=== PATIENT | female | born 1970 | race African-American/Black ===

== ENCOUNTER 2019-05-05 15:32 | Inpatient (IN) | payer OTHER ==
[2019-05-05] MEDS: SODIUM CHLORIDE 1,000 ML IV SCH (15:50)
[2019-05-05] MEDS ORDERED: ALTEPLASE 100MG 100 MG IVPB ONE (15:50)
[2019-05-05] MEDS ORDERED: ALTEPLASE 100 MG VIAL IVPB ONE ×2 (15:59→17:11)
[2019-05-05] MEDS ORDERED: ALTEPLASE BOLUS IVPUSH ONE ×2 (15:59→17:11)
[2019-05-05 16:03] LABS: BASO % 0.3 % (0-2.0); EOS % 0.1 % (0-4.5); HEMATOCRIT 37.7 % (32.4-45.2); HEMOGLOBIN 12.5 GM/dL (10.7-15.3); LYMPH % 3.8 % (8-40); MCH 30.9 pg (25.7-33.7); MCHC 33.2 g/dl (32.0-36.0); MEAN CELL VOLUME 93.1 fl (80-96); MEAN PLT VOLUME 7.6 fl (7.5-11.1); MONO % 1.7 % (3.8-10.2); NEUT % 94.1 % (42.8-82.8); PLATELET COUNT 354 K/MM3 (134-434); RBC 4.05 M/mm3 (3.60-5.2); RDW 13.2 % (11.6-15.6); WHITE BLOOD COUNT 10.9 K/mm3 (4.0-10.0)
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
[2019-05-05 16:15] LABS: INR 0.98 (0.83-1.09); PROTHROMBIN TIME (PATIENT) 11.6 SEC (9.7-13.0)
[2019-05-05 16:39] LABS: ALBUMIN 3.5 g/dl (3.4-5.0); ALK PHOS 54 U/L (45-117); ANION GAP 9 MMOL/L (8-16); BILIRUBIN,TOTAL 0.3 mg/dL (0.2-1); BLOOD UREA NITROGEN 12.9 mg/dL (7-18); CALCIUM 9.1 mg/dL (8.5-10.1); CHLORIDE 103 mmol/L (98-107); CHOLESTEROL 199 mg/dL (50-200); CO2 27 mmol/L (21-32); CREATININE 0.8 mg/dL (0.55-1.3); GLUCOSE,RANDOM 109 mg/dL (74-106); HDL CHOLESTEROL 79 mg/dL (40-60); POTASSIUM 3.5 mmol/L (3.5-5.1); SGOT/AST 18 U/L (15-37); SGPT/ALT 17 U/L (13-61); SODIUM 139 mmol/L (136-145); TOT PROT 6.5 g/dl (6.4-8.2); TRIGLYCERIDES 38 mg/dL (0-150)
[2019-05-05 17:00] LABS: PLATELET ESTIMATE ADEQUATE
[2019-05-05 17:34] LABS: PH,URINE 6.5 (5.0-8.0); URINE APPEARANCE CLEAR; URINE BILIRUBIN NEGATIVE (NEGATIVE); URINE COLOR YELLOW; URINE GLUCOSE (UA) NEGATIVE (NEGATIVE); URINE KETONE NEGATIVE (NEGATIVE); URINE LEUK ESTERASE NEGATIVE (NEGATIVE); URINE NITRITE NEGATIVE (NEGATIVE); URINE PROTEIN NEGATIVE (NEGATIVE); URINE UROBILINOGEN 0.2 mg/dL (0.2-1.0)
[2019-05-05] MEDS ORDERED: ACETAMINOPHEN 1000 MG/100 ML VIAL (NON FORMULARY) IVPB ONE ×2 (17:38→19:47)
[2019-05-05] MEDS ORDERED: ACETAMINOPHEN INJECTION 100 ML IVPB ONE (17:44)
--- NOTE | 2019-05-05 18:19 | CONSULT ---
Consultation: REQUESTING PROVIDER: CONSULT REQUEST: We have been asked to medically evaluate this patient for ICU monitoring. HISTORY OF PRESENT ILLNESS: 48 y/o female with PMH of asthma, MS, HTN presented to the hospital for a R bunyonectomy (patient's last known well was right before surgery; post- operatively patient was recovering in PACU and her parents noticed she had a hard time communicating with them and was having right sided weakness- code greco was called (at that time patient was found to have an NIH score of 11) and patient was taken to the ER where she was found to have an NIH of 7- she underwent head CT and CTA which showed no evidence of large vessel occlusion or stenosis - it showed periventricular white matter low attenuation areas which could be on the basis of infarct, demyelinating disease, gliosis or vasculitis. she was given TPA which started at 5:09 pm. REVIEW OF SYSTEMS: CONSTITUTIONAL: Absent: fever, chills, diaphoresis, generalized weakness, malaise, loss of appetite, weight change HEENT: Present: eye pain Absent: rhinorrhea, nasal congestion, throat pain, throat swelling, difficulty swallowing, mouth swelling, ear pain, visual changes CARDIOVASCULAR: Absent: chest pain, syncope, palpitations, irregular heart rate, lightheadedness , peripheral edema RESPIRATORY: Absent: cough, shortness of breath, dyspnea with exertion, orthopnea, wheezing, stridor, hemoptysis GASTROINTESTINAL: Absent: abdominal pain, abdominal distension, nausea, vomiting, diarrhea, constipation, melena, hematochezia GENITOURINARY: Absent: dysuria, frequency, urgency, hesitancy, hematuria, flank pain, genital pain MUSCULOSKELETAL: Present: right foot pain Absent: myalgia, arthralgia, joint swelling, back pain , neck pain SKIN: Absent: rash, itching, pallor HEMATOLOGIC/IMMUNOLOGIC: Absent: easy bleeding, easy bruising, lymphadenopathy, frequent infections ENDOCRINE: Absent: unexplained weight gain, unexplained weight loss, heat intolerance, cold intolerance NEUROLOGIC: Present: headache, focal weakness Absent: paresthesias, dizziness, unsteady gait , seizure, mental status changes, bladder or bowel incontinence PSYCHIATRIC: Absent: anxiety, depression, suicidal or homicidal ideation, hallucinations. PHYSICAL EXAMINATION Vital Signs - 24 hr 05/05/19 05/05/19 05/05/19 15:32 16:08 16:34 Temperature 98.1 F Pulse Rate 80 Pulse Rate [ 72 80 Apical] Respiratory 16 16 18 Rate Blood Pressure 119/94 Blood Pressure 131/86 127/71 [Right Arm] O2 Sat by Pulse 100 100 100 Oximetry (%) 05/05/19 05/05/19 05/05/19 16:45 17:09 17:24 Temperature Pulse Rate Pulse Rate [ 70 70 75 Apical] Respiratory 18 18 16 Rate Blood Pressure Blood Pressure 131/67 128/70 128/73 [Right Arm] O2 Sat by Pulse 100 100 100 Oximetry (%) GENERAL: Awake, alert,tearful EYES: PEERLA; EOMI; no scleral icterus NECK: no JVD; no lymphadenopathy LUNGS: diminished breath sounds B/L HEART: Regular rate and rhythm, normal S1 and S2 without murmur, rub or gallop. ABDOMEN: soft; nontender; non-distended +BS in all 4 quadrants MUSCULOSKELETAL: SEE NIHH STROKE SCALE NOTE. EXTREMITIES: warm; well-perfused no clubbing/cyanosis or edema NEUROLOGICAL: SEE NIHH STROKE SCALE NOTE PSYCHIATRIC: Cooperative. Good eye contact. Appropriate mood and affect. SKIN: Warm, dry, normal turgor, no rashes or lesions noted. Laboratory Results - last 24 hr 05/05/19 05/05/19 05/05/19 15:55 15:55 15:55 WBC 10.9 H RBC 4.05 Hgb 12.5 Hct 37.7 MCV 93.1 MCH 30.9 MCHC 33.2 RDW 13.2 Plt Count 354 MPV 7.6 Absolute Neuts (auto) 10.3 H Neutrophils % 94.1 H Neutrophils % (Manual) 93.0 H* Band Neutrophils % 0.0 Lymphocytes % 3.8 L Lymphocytes % (Manual) 7.0 L Monocytes % 1.7 L Monocytes % (Manual) 0 L Eosinophils % 0.1 Eosinophils % (Manual) 0.0 Basophils % 0.3 Basophils % (Manual) 0.0 Nucleated RBC % 0 Platelet Estimate Adequate PT with INR 11.60 INR 0.98 Sodium 139 Potassium 3.5 Chloride 103 Carbon Dioxide 27 Anion Gap 9 BUN 12.9 Creatinine 0.8 Est GFR (CKD-EPI)AfAm 102.47 Est GFR (CKD-EPI)NonAf 88.41 Random Glucose 109 H Calcium 9.1 Total Bilirubin 0.3 AST 18 ALT 17 Alkaline Phosphatase 54 Creatine Kinase 197 H Creatine Kinase Index 0.8 CK-MB (CK-2) 1.6 Troponin I < 0.02 Total Protein 6.5 Albumin 3.5 Triglycerides 38 Cholesterol 199 Total LDL Cholesterol 107 H HDL Cholesterol 79 H Urine Color Urine Appearance Urine pH Ur Specific [place] Urine Protein Urine Glucose (UA) Urine Ketones Urine Blood Urine Nitrite Urine Bilirubin Urine Urobilinogen Ur Leukocyte Esterase Blood Type Antibody Screen 05/05/19 05/05/19 15:55 17:10 WBC RBC Hgb Hct MCV MCH MCHC RDW Plt Count MPV Absolute Neuts (auto) Neutrophils % Neutrophils % (Manual) Band Neutrophils % Lymphocytes % Lymphocytes % (Manual) Monocytes % Monocytes % (Manual) Eosinophils % Eosinophils % (Manual) Basophils % Basophils % (Manual) Nucleated RBC % Platelet Estimate PT with INR INR Sodium Potassium Chloride Carbon Dioxide Anion Gap BUN Creatinine Est GFR (CKD-EPI)AfAm Est GFR (CKD-EPI)NonAf Random Glucose Calcium Total Bilirubin AST ALT Alkaline Phosphatase Creatine Kinase Creatine Kinase Index CK-MB (CK-2) Troponin I Total Protein Albumin Triglycerides Cholesterol Total LDL Cholesterol HDL Cholesterol Urine Color Yellow Urine Appearance Clear Urine pH 6.5 Ur Specific [place] 1.018 Urine Protein Negative Urine Glucose (UA) Negative Urine Ketones Negative Urine Blood Negative Urine Nitrite Negative Urine Bilirubin Negative Urine Urobilinogen 0.2 Ur Leukocyte Esterase Negative Blood Type A POSITIVE Antibody Screen Negative Active Medications Generic Name Dose Route Start Last Admin Trade Name Freq PRN Reason Stop Dose Admin Sodium Chloride 1,000 mls @ 42 mls/hr 05/05/19 15:45 05/05/19 15:50 Normal Saline - IV 42 mls/hr ASDIR LISSY Administration Head CTA: As noted on recent performed noncontrast CT extensive periventricular white matter low-attenuation is noted which may be on the basis of etiologies such as infarction, demyelinating disease disease, postinflammatory/postinfectious gliosis, vasculitis. Bilateral parietal lobe atrophy is also seen. Impression: No CT evidence of large vessel stenosis or occlusion. No discrete intraluminal defect is seen. ASSESSMENT/PLAN: 48 y/o female with PMH of MS, asthma, HTN presented to the hospital for a R bunyonectomy surgery was recovering in PACU when she developed acute right sided weakness and trouble speaking found to have an acute CVA #Neuro patient underwent head CT/CTA with results noted above -TPA was done in the ER started at 5:09 -patient NIH scale currently 9 -allow for permissive HTN: <180/105 in the first 24 hours -vital signs and neuro checks q15 mins for the first hour; then every 30 mins for the next 6 hours; then hourly at the 8th posttransfusion hour -neuro on board -MRI to be done -echo/dopplers -lipid panel -will monitor for signs of bleeding -NPO until speech and swallow eval #Cardiovascular patient has a history of HTN -need to allow for permissive HTN in first 24 hours -maintain BP <180/105\ -lipid panel pending -atorvastatin 80mg -echo pending # Pulmonary patient has history of asthma -not in acute distress at the moment -will monitor O2 saturations F/E/N NS @42mls/hr monitor electrolytes NPO until speech and swallow eval DVT PPX; SCDS Dispo: We will continue to follow the patient. Thank you for this consultative opportunity. Visit type - Emergency Visit Emergency Visit: Yes ED Registration Date: 05/05/19 Care time: The patient presented to the Emergency Department on the above date and was hospitalized for further evaluation of their emergent condition. - New Patient This patient is new to me today: Yes Date on this admission: 05/05/19 - Critical Care Critical Care patient: Yes Total Critical Care Time (in minutes): 35 Critical Care Statement: The care of this patient involved high complexity decision making to prevent further life threatening deterioration of the patient 's condition and/or to evaluate & treat vital organ system(s) failure or risk of failure.
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
--- NOTE | 2019-05-05 18:46 | HP ---
CHIEF COMPLAINT: PCP: HISTORY OF PRESENT ILLNESS: The patient is a 48 y/o female with PMH of asthma, MS, HTN presented to the hospital for an elective R bunyonectomy. After coming out of the surgery, the patient's mother noticed that she was slurring her words and was displaying delayed speech. Ildefonso greco was called in the PACU. Rapid response team assessed the patient and found RUE/RLE weakness as well as decreased sensation on the right side of the face. NIHSS on initial presentation: 11 Patient was taken to the ER for further evaluation. In the ED, the patient was found to have a NIHSS 7. CTA showed no large vessel occlusion, therefore transfer for thrombectomy was nto indicated. At 2.5 hrs since last known well, ton remained with an NIHSS of 7. The decision was made between ED staff and neuro (Dr. Khoury) to give the patient TPa. Infusion initiated at approx. 17:09. Recent Travel: none PAST MEDICAL HISTORY: see HPI PAST SURGICAL HISTORY: Right TKA Left total hip replacement Social History: Smoking: denies Alcohol: denies Drugs: denies Family History: Non-contributory Allergies azithromycin [From Zithromax Z-Eduardo] Allergy (Verified 05/05/19 15:36) "feels out of it" fish derived Allergy (Verified 05/05/19 15:36) "anaphylactic reaction" hydrocodone [From Vicodin] Allergy (Verified 05/05/19 15:36) "hives" meperidine [From Demerol] Allergy (Verified 05/05/19 15:36) "itch/hives" oxycodone Allergy (Verified 05/05/19 15:36) "hives,difficulty breathing" tree nut Allergy (Verified 05/05/19 15:36) "swelling-throat" HOME MEDICATIONS: Home Medications Medication Instructions Recorded Albuterol Sulfate Inhaler - 1 - 2 inh PO Q4H PRN 05/05/19 [Ventolin Hfa Inhaler -] Azelastine HCl 137 mcg NS PRN PRN 05/05/19 Fluticasone Propionate [Flovent 100 mcg IH PRN PRN 05/05/19 Diskus] Gabapentin [Neurontin -] 300 mg PO Q8H 05/05/19 Levocetirizine Dihydrochloride 5 mg PO DAILY 05/05/19 [Xyzal] Losartan Potassium 25 mg PO DAILY 05/05/19 Montelukast Sodium [Singulair] 10 mg PO DAILY 05/05/19 Pantoprazole Sodium 40 mg PO BID 05/05/19 REVIEW OF SYSTEMS CONSTITUTIONAL: Absent: fever, chills, diaphoresis, generalized weakness, malaise, loss of appetite, weight change HEENT: Absent: rhinorrhea, nasal congestion, throat pain, throat swelling, difficulty swallowing, mouth swelling, ear pain, eye pain, visual changes CARDIOVASCULAR: Absent: chest pain, syncope, palpitations, irregular heart rate, lightheadedness , peripheral edema RESPIRATORY: Absent: cough, shortness of breath, dyspnea with exertion, orthopnea, wheezing, stridor, hemoptysis GASTROINTESTINAL: Absent: abdominal pain, abdominal distension, nausea, vomiting, diarrhea, constipation, melena, hematochezia GENITOURINARY: Absent: dysuria, frequency, urgency, hesitancy, hematuria, flank pain, genital pain MUSCULOSKELETAL: Absent: myalgia, arthralgia, joint swelling, back pain, neck pain SKIN: Absent: rash, itching, pallor HEMATOLOGIC/IMMUNOLOGIC: Absent: easy bleeding, easy bruising, lymphadenopathy, frequent infections ENDOCRINE: Absent: unexplained weight gain, unexplained weight loss, heat intolerance, cold intolerance NEUROLOGIC: Absent: dizziness, unsteady gait, seizure, mental status changes, bladder or bowel incontinence PSYCHIATRIC: Absent: anxiety, depression, suicidal or homicidal ideation, hallucinations. PHYSICAL EXAMINATION Vital Signs - 24 hr 05/05/19 05/05/19 05/05/19 15:32 16:08 16:34 Temperature 98.1 F Pulse Rate 80 Pulse Rate [ 72 80 Apical] Respiratory 16 16 18 Rate Blood Pressure 119/94 Blood Pressure 131/86 127/71 [Right Arm] O2 Sat by Pulse 100 100 100 Oximetry (%) 05/05/19 05/05/19 05/05/19 16:45 17:09 17:24 Temperature Pulse Rate Pulse Rate [ 70 70 75 Apical] Respiratory 18 18 16 Rate Blood Pressure Blood Pressure 131/67 128/70 128/73 [Right Arm] O2 Sat by Pulse 100 100 100 Oximetry (%) 05/05/19 05/05/19 05/05/19 17:54 18:09 18:39 Temperature Pulse Rate Pulse Rate [ 72 65 76 Apical] Respiratory 17 16 16 Rate Blood Pressure Blood Pressure 125/70 128/73 126/74 [Right Arm] O2 Sat by Pulse 100 100 100 Oximetry (%) GENERAL: Awake, alert, and fully oriented, in moderate distress. Answers delayed , but appropriate to questions. HEAD: Normal with no signs of trauma. EYES: Pupils equal, round and reactive to light, extraocular movements intact, sclera anicteric, conjunctiva clear. No lid lag. EARS, NOSE, THROAT: Ears normal, nares patent, oropharynx clear without exudates. Moist mucous membranes. NECK: Normal range of motion, supple without lymphadenopathy, JVD, or masses. LUNGS: Breath sounds equal, clear to auscultation bilaterally. No wheezes, and no crackles. No accessory muscle use. HEART: Regular rate and rhythm, normal S1 and S2 without murmur, rub or gallop. ABDOMEN: Soft, nontender, not distended, normoactive bowel sounds, no guarding, no rebound, no masses. No hepatomegaly or splenomegaly. LOWER EXTREMITIES: 2+ pulses, warm, well-perfused. No calf tenderness. No peripheral edema. RLE wrapped in hiro bandage post-op NEUROLOGICAL: Right sided flattening of the nasolabial fold. right sided partial hemianopsia. strength 3/5 on right, strength 5/5 on left. Decreased sensation over left face and over left arm and left leg. aphasia and dysarthria present. NIHSS 8. SKIN: Warm, dry, normal turgor, no rashes noted, normal capillary refill. Laboratory Results - last 24 hr 05/05/19 05/05/19 05/05/19 15:55 15:55 15:55 WBC 10.9 H RBC 4.05 Hgb 12.5 Hct 37.7 MCV 93.1 MCH 30.9 MCHC 33.2 RDW 13.2 Plt Count 354 MPV 7.6 Absolute Neuts (auto) 10.3 H Neutrophils % 94.1 H Neutrophils % (Manual) 93.0 H* Band Neutrophils % 0.0 Lymphocytes % 3.8 L Lymphocytes % (Manual) 7.0 L Monocytes % 1.7 L Monocytes % (Manual) 0 L Eosinophils % 0.1 Eosinophils % (Manual) 0.0 Basophils % 0.3 Basophils % (Manual) 0.0 Nucleated RBC % 0 Platelet Estimate Adequate PT with INR 11.60 INR 0.98 Sodium 139 Potassium 3.5 Chloride 103 Carbon Dioxide 27 Anion Gap 9 BUN 12.9 Creatinine 0.8 Est GFR (CKD-EPI)AfAm 102.47 Est GFR (CKD-EPI)NonAf 88.41 Random Glucose 109 H Calcium 9.1 Total Bilirubin 0.3 AST 18 ALT 17 Alkaline Phosphatase 54 Creatine Kinase 197 H Creatine Kinase Index 0.8 CK-MB (CK-2) 1.6 Troponin I < 0.02 Total Protein 6.5 Albumin 3.5 Triglycerides 38 Cholesterol 199 Total LDL Cholesterol 107 H HDL Cholesterol 79 H Urine Color Urine Appearance Urine pH Ur Specific [place] Urine Protein Urine Glucose (UA) Urine Ketones Urine Blood Urine Nitrite Urine Bilirubin Urine Urobilinogen Ur Leukocyte Esterase Blood Type Antibody Screen 05/05/19 05/05/19 15:55 17:10 WBC RBC Hgb Hct MCV MCH MCHC RDW Plt Count MPV Absolute Neuts (auto) Neutrophils % Neutrophils % (Manual) Band Neutrophils % Lymphocytes % Lymphocytes % (Manual) Monocytes % Monocytes % (Manual) Eosinophils % Eosinophils % (Manual) Basophils % Basophils % (Manual) Nucleated RBC % Platelet Estimate PT with INR INR Sodium Potassium Chloride Carbon Dioxide Anion Gap BUN Creatinine Est GFR (CKD-EPI)AfAm Est GFR (CKD-EPI)NonAf Random Glucose Calcium Total Bilirubin AST ALT Alkaline Phosphatase Creatine Kinase Creatine Kinase Index CK-MB (CK-2) Troponin I Total Protein Albumin Triglycerides Cholesterol Total LDL Cholesterol HDL Cholesterol Urine Color Yellow Urine Appearance Clear Urine pH 6.5 Ur Specific [place] 1.018 Urine Protein Negative Urine Glucose (UA) Negative Urine Ketones Negative Urine Blood Negative Urine Nitrite Negative Urine Bilirubin Negative Urine Urobilinogen 0.2 Ur Leukocyte Esterase Negative Blood Type A POSITIVE Antibody Screen Negative ASSESSMENT/PLAN: The patient is a 48 y/o female with PMH of asthma, MS, HTN presented to the hospital for an elective R bunyonectomy. After coming out of the surgery, the patient's mother noticed that she was slurring her words and was displaying delayed speech. #Focal neurological deficits 2/2 acute CVA -s/p TPa @ 17:09 -No needle sticks for 24 hrs. -Neuro checks [id number] -seizure precautions -strict bp control; maintain bp <180/105 -Defer additional testing until 24 hrs after TPa -Carotid dopplers -echo -Lipitor 80mg -holding ASA for now as patient got TPa -NPO for now as dysarthric -Speech consult in AM -Fall precautions -seizure precautions -admit ICU for close monitoring. #FEN -no fluids indicated -lytes WNL -NPO for now #Prophy -AC contraindicated in the setting of TPa #Dispo -admit ICU Visit type - Emergency Visit Emergency Visit: Yes ED Registration Date: 05/05/19 Care time: The patient presented to the Emergency Department on the above date and was hospitalized for further evaluation of their emergent condition. - New Patient This patient is new to me today: Yes Date on this admission: 05/05/19 - Critical Care Critical Care patient: Yes Total Critical Care Time (in minutes): 40 Critical Care Statement: The care of this patient involved high complexity decision making to prevent further life threatening deterioration of the patient 's condition and/or to evaluate & treat vital organ system(s) failure or risk of failure.
--- NOTE | 2019-05-05 18:49 | PN.NIHSS ---
NIH Stroke Scale - Last Known Well Date/Time & Onset Date Last Known Well: 05/05/19 - Initial Evaluation Level of consciousness: Alert Ask patient the month and their age: Answers both correctly Ask patient to open & close eyes; make fist and let go: Obeys both correctly Best gaze (horizontal eye movement): Normal Visual field testing: Partial hemianopia Facial paresis (Show teeth/raise eyebrows/close eyes tight): Minor paralysis ( flattened nasolabial fold, asymmetry on smiling) Motor Function: Left Arm: Normal Motor Function: Right Arm: Drift Motor Function: Left Leg: Normal (extends leg 30 degrees for 5 seconds without drift) Motor Function: Right Leg: Drift Limb Ataxia: No ataxia Sensory(Use pinprick test arms,legs,trunk,face/side to side): Mild to moderate decrease in sensation Best language (Describe picture, name items, read sentences): Severe aphasia Dysarthria (read several words): Mild to moderate slurring of words Extinction and Inattention: No abnormality - Total Score NIH Stroke Scale Score: 8
[2019-05-05] MEDS: CHLORHEXIDINE GLUCONATE 4% CLEANSER FOR DECOLONIZATION TP SCH (21:04)
[2019-05-05] MEDS: ATORVASTATIN CA 80 MG TABLET (FP) PO SCH (21:05)
[2019-05-05] MEDS ORDERED: ALBUTEROL SO4 8 GM HFA INHALER IH PRN (22:44)
[2019-05-05] MEDS: MUPIROCIN 2% TOPICAL OINTMENT FOR DECOLONIZATION NS SCH (23:37)
[2019-05-06] MEDS ORDERED: PATIENT'S OWN MEDICATION (NON-FORMULARY) (Fluticasone Propionate [Flovent Diskus] 100 MCG) IH PRN (01:51)
[2019-05-06] MEDS ORDERED: MOMETASONE FUROATE 220 MCG/IH INHALER IH SCH (02:15)
[2019-05-06] MEDS ORDERED: ACETAMINOPHEN 1000 MG/100 ML VIAL (NON FORMULARY) IVPB ONE ×2 (03:17→08:42)
--- NOTE | 2019-05-06 08:41 | PN ---
Progress Note (short form) - Note Progress Note: continues to have weakness on the R side but overall improved from yesterday. denies CP, SOB, fever, chills, N/V/C/D, blurred vision, MILLIG[place], informed night RN that she takes her medications inconsistently and only when she feels like she needs it. took her losaratan day before surgery and noted to be extremely dizzy. she said she took her BP and systolic was in the 80's. said she checked it morning of surgery and found it to be 120 so she decided to proceed with the surgery but notes she did not notify anyone of her BP the day before Current Medications Generic Name Dose Route Start Last Admin Trade Name Freq PRN Reason Stop Dose Admin Albuterol Sulfate 1 - 2 puff 05/05/19 22:44 05/05/19 23:36 Ventolin Hfa Inhaler - IH 1 puff Q4H PRN Administration ASTHMA Atorvastatin Calcium 80 mg 05/05/19 22:00 05/05/19 21:05 Lipitor - PO Not Given HS LISSY Chlorhexidine Gluconate 1 applic 05/05/19 22:00 05/05/19 21:04 Hibiclens For Decolonization - TP 1 applic HS LISSY Administration Sodium Chloride 1,000 mls @ 42 mls/hr 05/05/19 15:45 05/05/19 15:50 Normal Saline - IV 42 mls/hr ASDIR LISSY Administration Mometasone Furoate 1 puff 05/06/19 02:15 05/06/19 02:30 Asmanex 220mcg - IH 1 puff HS LISSY Administration Mupirocin 1 applic 05/05/19 22:00 05/05/19 23:37 Bactroban Ointment (For Decolonization) - NS 05/10/19 21:59 1 applic BID LISSY Administration Last Vital Signs Temp Pulse Resp BP Pulse Ox 98.3 F 64 15 140/68 100 05/06/19 06:00 05/06/19 08:00 05/06/19 08:00 05/06/19 08:00 05/05/19 19:14 General more alert. slow to respond but not slurred CV S1 s2 RRR no murmur/rub/gallop Lungs CTA B/L no wheezing/rales/rhonci Extremities R foot in surgical shoe with JOSE E bandage Neuro decreased sensation on the R side of face but intact throughout the rest of the body. no facial droop. R pronator drift. sensation 3/5 RUE 2/5 RLE 5/5 LUE and LLE ASSESSMENT AND PLAN: 48yo F with PMH HTN, asthma, MS, seizures was sent to the ER after nikole shultz was called in the PACU for dysarthria and change in mental status was found to have NIHSS 11 initially and then 7 in the ER. 1. CVA- possible arrhythmia which potentiated embolus vs hypoperfusion. appears she had hypotensive episode night before presentation. s/p TPA given at 1800 yesterday. will hold all lab draws until that time. bedside swallow to assess if diet can be advanced. frequent neurochecks SBP <180. will need echo/mri/ carotid dopplers. will need to be evaluated by speech and swallow and PT. lipids to be checked when able to do labs. on high intensity statin. hold asa given TPA 2. Leukocytosis- likely stress induced from surgery. no obvious signs of infection. will hold abx at this time. repeat tonight 3. HTN- holding medications. goal <180 4. Seizure- not on seizure medications? will need to med rec and verify. seizure precautions 5. MSD- gets daily injections. will need to hold at this time given TPA 5. DVT ppx- no pharmacologic anticoagulation as pt received TPA 6. MICU monitoring. spoke with sister present at bedside, all questions answred. verbalized understanding and agreement The care of this patient involved high complexity decision making to prevent further life threatening deterioration of the patient's condition and/or to evaluate & treat vital organ system(s) failure or risk of failure. 42 mins
--- NOTE | 2019-05-06 10:08 | PN ---
Progress Note (short form) - Note Progress Note: Pulm/CCM Seen and examined in ICU 24HR: -s/p tPA with improved R sided mvt and improved dysarthria -no acute events overnight -planned for carotid dopplers, MRI, TTE Vital Signs Temp 98.3 F 05/06/19 06:00 Pulse 64 05/06/19 08:00 Resp 15 05/06/19 08:00 BP 140/68 05/06/19 08:00 Pulse Ox 100 05/05/19 19:14 Intake & Output 05/05/19 05/05/19 05/06/19 11:59 23:59 11:59 Intake Total 504 Output Total 350 Balance 154 Weight 82.962 kg 82.781 kg Intake: IV 504 Normal Saline - 1,000 ml 504 @ 42 mls/hr IV ASDIR [facility] Rx#:[id number] Output: Urine 350 Void 350 Other: Voiding Method Bedpan # Unmeasured Voids Void 1 Bowel Movement No Height 5 ft Body Mass Index (BMI) 35.2 Weight Measurement Method [facility] CBC, BMP 05/05/19 15:55 05/05/19 15:55 Active Medications Albuterol Sulfate (Ventolin Hfa Inhaler -) 1 - 2 puff IH Q4H PRN PRN Reason: ASTHMA Last Admin: 05/05/19 23:36 Dose: 1 puff Atorvastatin Calcium (Lipitor -) 80 mg PO [facility] Last Admin: 05/05/19 21:05 Dose: Not Given Chlorhexidine Gluconate (Hibiclens For Decolonization -) 1 applic TP [facility] Last Admin: 05/05/19 21:04 Dose: 1 applic Sodium Chloride (Normal Saline -) 1,000 mls @ 42 mls/hr IV ASDIR [facility] Last Admin: 05/05/19 15:50 Dose: 42 mls/hr Mometasone Furoate (Asmanex 220mcg -) 1 puff IH [facility] Last Admin: 05/06/19 02:30 Dose: 1 puff Mupirocin (Bactroban Ointment (For Decolonization) -) 1 applic NS BID [facility] Stop: 05/10/19 21:59 Last Admin: 05/05/19 23:37 Dose: 1 applic PE: GEN: awake, alert, per sister nearly back to baseline, no distress HEENT: PERRL, EOMI, no facial droop, symetric sensation, PULM: clear CV: reg, no m/r/g ABD: obese soft EXT: warm well perfused, R foot dressed NEURO: RUE 02/10, LUE 03/12, RLE: 02/10, LUE 03/12 Current Active Problems Cerebrovascular accident (CVA) (Acute) -hold labs to 24hr post tPA -MRI, TTE, Carotid dopplers -high intensity statin -ASA likely to start tomorrow -pain control post op with tylenol -neuro follow up -OOB -ortho follow up as out pt -scd for dvt prophy given recent tPA [facility]
[2019-05-06] MEDS: MUPIROCIN 2% TOPICAL OINTMENT FOR DECOLONIZATION NS SCH ×2 (10:30→21:34)
[2019-05-06] MEDS ORDERED: MORPHINE SULFATE 2 MG/ML VIAL IVPUSH PRN (12:39)
[2019-05-06] MEDS ORDERED: MORPHINE SULFATE 2 MG/ML VIAL ONE (12:51)
--- NOTE | 2019-05-06 13:08 | PN ---
Progress Note, Physician Chief Complaint: Post anesthesia check Patient is s/p right foot bunionectomy under TIVA post op day one History of Present Illness: The course of the perioperative time was complicated by an apparent post operative CVA treated by TPA. - Current Medication List Current Medications: Active Medications Albuterol Sulfate (Ventolin Hfa Inhaler -) 1 - 2 puff IH Q4H PRN PRN Reason: ASTHMA Last Admin: 05/05/19 23:36 Dose: 1 puff Atorvastatin Calcium (Lipitor -) 80 mg PO HS [facility] Last Admin: 05/05/19 21:05 Dose: Not Given Chlorhexidine Gluconate (Hibiclens For Decolonization -) 1 applic TP HS [facility] Last Admin: 05/05/19 21:04 Dose: 1 applic Sodium Chloride (Normal Saline -) 1,000 mls @ 42 mls/hr IV ASDIR [facility] Last Admin: 05/05/19 15:50 Dose: 42 mls/hr Mometasone Furoate (Asmanex 220mcg -) 1 puff IH [facility] Last Admin: 05/06/19 02:30 Dose: 1 puff Morphine Sulfate (Morphine Sulfate) 1 mg IVPUSH Q4H PRN PRN Reason: PAIN LEVEL 1 - 3 Morphine Sulfate (Morphine Sulfate) 2 mg IVPUSH Q4H PRN PRN Reason: PAIN LEVEL 4 - 6 Mupirocin (Bactroban Ointment (For Decolonization) -) 1 applic NS BID [facility] Stop: 05/10/19 21:59 Last Admin: 05/05/19 23:37 Dose: 1 applic - Objective Vital Signs: Vital Signs Temperature 98.3 F 05/06/19 06:00 Pulse Rate 53 L 05/06/19 10:00 Respiratory Rate 19 05/06/19 10:00 Blood Pressure 128/56 L 05/06/19 10:00 O2 Sat by Pulse Oximetry (%) 100 05/06/19 09:00 Constitutional: Yes: Well Nourished, No Distress Cardiovascular: Yes: WNL Respiratory: Yes: WNL Gastrointestinal: Yes: WNL Neurological: Yes: Alert, Oriented, Lethargy Labs: CBC, BMP 05/05/19 15:55 05/05/19 15:55 INR, PTT INR 0.98 (0.83-1.09) 05/05/19 15:55 Assessment/Plan Symptoms of the CVA are resolving, no apparent anesthesia adverse effects, care left in the hands of the stroke team, dept of anesthsiology will sign off at this time
--- NOTE | 2019-05-06 13:34 | CON.NEURO ---
Consult Consult Specialty:: NEUROLOGY-DENAE ASIF - History of Present Illness History of Present Illness: Chart/hx. reviewed, yesterdays events noted, yesterday d/w ER staff/residents- The patient is a 48 y/o female with PMH of asthma, MS, HTN presented to the hospital for an elective R bunyonectomy. After coming out of the surgery, the patient's mother noticed that she was slurring her words and was displaying delayed speech. Ildefonso greco was called in the PACU. Rapid response team assessed the patient and found RUE/RLE weakness as well as decreased sensation on the right side of the face. NIHSS on initial presentation: 11 Patient was taken to the ER for further evaluation. In the ED, the patient was found to have a NIHSS 7. CTA showed no large vessel occlusion, therefore transfer for thrombectomy was nto indicated. At 2.5 hrs since last known well, ton remained with an NIHSS of 7. The decision was made between ED staff and neuro (Dr. Khoury) to give the patient TPa. Infusion initiated at approx. 17:09. Today reports she feels better, that left face numbness has resolved as has language difficulty and right sided weakness has improved. - Past Medical History ...LMP: 04/30/19 - Alcohol/Substance Use Hx Alcohol Use: No - Smoking History Smoking history: Former smoker Have you smoked in the past 12 months: No Home Medications - Allergies Allergies/Adverse Reactions: Allergies Allergy/AdvReac Type Severity Reaction Status Date / Time azithromycin Allergy "feels out Verified 05/05/19 15:36 [From Zithromax Z-Eduardo] of it" fish derived Allergy "anaphylactic Verified 05/05/19 15:36 reaction" hydrocodone [From Vicodin] Allergy "hives" Verified 05/05/19 15:36 meperidine [From Demerol] Allergy "itch/hives Verified 05/05/19 15:36 " oxycodone Allergy "hives,difficulty Verified 05/05/19 15:36 breathing" tree nut Allergy "swelling-t Verified 05/05/19 15:36 hroat" - Home Medications Home Medications: Ambulatory Orders Albuterol Sulfate Inhaler - [Ventolin Hfa Inhaler -] 1 - 2 inh PO Q4H PRN Azelastine HCl 137 mcg NS PRN PRN 05/05/19 Fluticasone Propionate [Flovent Diskus] 100 mcg IH PRN PRN 05/05/19 Gabapentin [Neurontin -] 300 mg PO Q8H 05/05/19 Levocetirizine Dihydrochloride [Xyzal] 5 mg PO DAILY 05/05/19 Losartan Potassium 25 mg PO DAILY 05/05/19 Montelukast Sodium [Singulair] 10 mg PO DAILY 05/05/19 Pantoprazole Sodium 40 mg PO BID 05/05/19 Physical Exam-Neuro Vital Signs: Vital Signs Temperature 98.3 F 05/06/19 06:00 Pulse Rate 53 L 05/06/19 10:00 Respiratory Rate 19 05/06/19 10:00 Blood Pressure 128/56 L 05/06/19 10:00 O2 Sat by Pulse Oximetry (%) 100 05/06/19 09:00 Labs: CBC, BMP 05/05/19 15:55 05/05/19 15:55 INR, PTT INR 0.98 (0.83-1.09) 05/05/19 15:55 - Neuro Exam Cranial Nerves II-XII Intact: No (slight right central facial deficit) DTR's: 0 Right Achilles (Not testable), 1+ Left Brachioradialis, 1+ Right Brachioradialis, 2+ Left Bicep, 2+ Right Bicep, 2+ Left Tricep, 2+ Right Tricep , 2+ Left Achilles Babinski: Absent (Right not testable) Motor Strength: 2/5: Right Leg (?/ limited 2/2 foot pain), 4/5: Right Arm, 5/5: Left Arm, Left Leg Imaging - Results Cat Scan: Report Reviewed (CT head without abn, by verbal report CTA brain yesterday without abn.) Assessment/Plan pt. s/p tPA for right MCA syndrome with motor aphasia/right hemifacila sensory deficit and hemiparesis, now improved likely hypotension as etiology but cannot r/o cardioembolic event Would obtain carotid ultrasound, cardiology consultation ?? cardiac embolii.Please place her on ASA 81mg daily. Thank you, Philip Khoury MD
[2019-05-06] MEDS: MORPHINE SULFATE 2 MG/ML VIAL IVPUSH PRN ×2 (13:45→18:48)
[2019-05-06] MEDS ORDERED: HYDROmorphone HCl 2 MG/ML VIAL IVPUSH PRN (16:27)
[2019-05-06] MEDS: SODIUM CHLORIDE 1,000 ML IV SCH (18:00)
[2019-05-06] MEDS: CHLORHEXIDINE GLUCONATE 4% CLEANSER FOR DECOLONIZATION TP SCH (21:34)
[2019-05-06] MEDS: ATORVASTATIN CA 80 MG TABLET (FP) PO SCH (21:34)
[2019-05-07] MEDS: MORPHINE SULFATE 2 MG/ML VIAL IVPUSH PRN ×4 (02:58→22:09)
[2019-05-07 05:50] LABS: BASO % 0.5 % (0-2.0); EOS % 1.7 % (0-4.5); HEMATOCRIT 37.4 % (32.4-45.2); HEMOGLOBIN 12.5 GM/dL (10.7-15.3); LYMPH % 14.3 % (8-40); MCHC 33.4 g/dl (32.0-36.0); MEAN CELL VOLUME 92.8 fl (80-96); MONO % 8.9 % (3.8-10.2); NEUT % 74.6 % (42.8-82.8); PLATELET COUNT 383 K/MM3 (134-434); RBC 4.03 M/mm3 (3.60-5.2); RDW 13.1 % (11.6-15.6)
[2019-05-07 06:05] LABS: INR 1.06 (0.83-1.09); PROTHROMBIN TIME (PATIENT) 12.5 SEC (9.7-13.0)
[2019-05-07 06:17] LABS: BLOOD UREA NITROGEN 6.2 mg/dL (7-18); CALCIUM 8.8 mg/dL (8.5-10.1); CREATININE 0.6 mg/dL (0.55-1.3); PHOSPHOROUS 3.9 mg/dL (2.5-4.9); POTASSIUM 3.4 mmol/L (3.5-5.1)
[2019-05-07 06:32] LABS: CHOLESTEROL 202 mg/dL (50-200); HDL CHOLESTEROL 70 mg/dL (40-60); TRIGLYCERIDES 59 mg/dL (0-150)
[2019-05-07] MEDS ORDERED: POTASSIUM CHLORIDE TABS 20 MEQ TABLET.ER (FP) PO ONE (07:45)
[2019-05-07] MEDS: MUPIROCIN 2% TOPICAL OINTMENT FOR DECOLONIZATION NS SCH ×2 (09:14→22:12)
[2019-05-07] MEDS ORDERED: ACETAMINOPHEN 325 MG TABLET (FP) PO PRN (09:59)
[2019-05-07] MEDS ORDERED: MORPHINE SULFATE 2 MG/ML VIAL IVPUSH PRN ×3 (09:59→15:03)
[2019-05-07] MEDS ORDERED: ASPIRIN COATED 81 MG TABLET.EC PO SCH (10:00)
--- NOTE | 2019-05-07 10:16 | PN ---
Physical Exam: SUBJECTIVE: Patient seen this morning and states she is feelign a little better. The pain medication is helping, slight headache, no events overnight. OBJECTIVE: Vital Signs Temperature 98.2 F 05/07/19 02:00 Pulse Rate 55 L 05/07/19 08:00 Respiratory Rate 18 05/07/19 08:00 Blood Pressure 146/72 05/07/19 08:00 O2 Sat by Pulse Oximetry (%) 100 05/06/19 20:00 GENERAL: The patient is awake, alert, and fully oriented, in no acute distress. HEAD: Normal with no signs of trauma. EYES: PERRL, extraocular movements intact, LUNGS: Breath sounds equal, clear to auscultation bilaterally HEART: Regular rate and rhythm, S1, S2 without murmur, rub or gallop. 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 SKIN: Warm, dry, normal turgor, no rashes or lesions noted CBC, BMP 05/07/19 05:08 05/07/19 05:08 Active Medications Acetaminophen (Tylenol -) 650 mg PO Q6H PRN PRN Reason: PAIN LEVEL 1-5 Albuterol Sulfate (Ventolin Hfa Inhaler -) 1 - 2 puff IH Q4H PRN PRN Reason: ASTHMA Last Admin: 05/05/19 23:36 Dose: 1 puff Aspirin (Ecotrin -) 81 mg PO DAILY [facility] Last Admin: 05/07/19 09:10 Dose: 81 mg Atorvastatin Calcium (Lipitor -) 80 mg PO HS [facility] Last Admin: 05/06/19 21:34 Dose: 80 mg Chlorhexidine Gluconate (Hibiclens For Decolonization -) 1 applic TP HS [facility] Last Admin: 05/06/19 21:34 Dose: 1 applic Sodium Chloride (Normal Saline -) 1,000 mls @ 42 mls/hr IV ASDIR [facility] Last Admin: 05/06/19 18:00 Dose: 42 mls/hr Morphine Sulfate (Morphine Sulfate) 2 mg IVPUSH Q4H PRN PRN Reason: PAIN LEVEL 6-10 Morphine Sulfate (Morphine Sulfate) 1 mg IVPUSH Q4H PRN PRN Reason: PAIN LEVEL 4 - 6 Mupirocin (Bactroban Ointment (For Decolonization) -) 1 applic NS BID [facility] Stop: 05/10/19 21:59 Last Admin: 05/07/19 09:14 Dose: 1 applic Non-Formulary Medication (Patient's Own Med) 1 each IH BID [facility] Last Admin: 05/07/19 09:12 Dose: 1 each Non-Formulary Medication (Patient's Own Med) 2 each IH BID [facility] Last Admin: 05/07/19 09:12 Dose: 2 each ASSESSMENT/PLAN: Patient is a 48 y/o female with a history of HTN who presented after a bunionectomy with neuro changes and was found to have a CVA. #CVA - no CT evidence of large vessel stenosis or occlusion - given TPA, monitored in ICU can move to stroke floor today - will start on ASA 81 daily - f/u carotid and ECHO and MRI - should continue to be monitored for neuro checks #POD 2 bunionectomy - morhpine and tylenol for pain - f/u as per surgery #HTN - losartan 25 mg daily #DVT ppx - SCD's after tpa given FEN - advance diet to full liquid and advance to soft as tolerated - f/u PT and speech and swallow Dispo: can monitor on stroke unit Visit type - Emergency Visit Emergency Visit: No - New Patient This patient is new to me today: No - Critical Care Critical Care patient: No
[2019-05-07] MEDS ORDERED: POTASSIUM CHLORIDE ORAL LIQUID 20 MEQ/15 ML PO ONE (10:17)
[2019-05-07] MEDS: LOSARTAN POTASSIUM 25 MG TABLET PO SCH (12:27)
--- NOTE | 2019-05-07 12:41 | PN ---
Progress Note, Physician Chief Complaint: Stroke History of Present Illness: Chart/hx. reviewed, yesterdays events noted, yesterday d/w ER staff/residents- The patient is a 48 y/o female with PMH of asthma, MS, HTN presented to the hospital for an elective R bunyonectomy. After coming out of the surgery, the patient's mother noticed that she was slurring her words and was displaying delayed speech. Ildefonso angus was called in the PACU. Rapid response team assessed the patient and found RUE/RLE weakness as well as decreased sensation on the right side of the face. NIHSS on initial presentation: 11 Patient was taken to the ER for further evaluation. In the ED, the patient was found to have a NIHSS 7. CTA showed no large vessel occlusion, therefore transfer for thrombectomy was nto indicated. At 2.5 hrs since last known well, ton remained with an NIHSS of 7. The decision was made between ED staff and neuro (Dr. Khoury) to give the patient TPa. Infusion initiated at approx. 17:09. F/U On May 07, 2019; Pt doing well; no bleed or side effect ; still c/o mild R side UE weakness and paresthesia , she states that her speech is improved. - Current Medication List Current Medications: Active Medications Acetaminophen (Tylenol -) 650 mg PO Q6H PRN PRN Reason: PAIN LEVEL 1-5 Albuterol Sulfate (Ventolin Hfa Inhaler -) 1 - 2 puff IH Q4H PRN PRN Reason: ASTHMA Last Admin: 05/05/19 23:36 Dose: 1 puff Aspirin (Ecotrin -) 81 mg PO DAILY [facility] Last Admin: 05/07/19 09:10 Dose: 81 mg Atorvastatin Calcium (Lipitor -) 80 mg PO HS [facility] Last Admin: 05/06/19 21:34 Dose: 80 mg Chlorhexidine Gluconate (Hibiclens For Decolonization -) 1 applic TP HS [facility] Last Admin: 05/06/19 21:34 Dose: 1 applic Sodium Chloride (Normal Saline -) 1,000 mls @ 42 mls/hr IV ASDIR [facility] Last Admin: 05/06/19 18:00 Dose: 42 mls/hr Losartan Potassium (Cozaar -) 25 mg PO DAILY [facility] Last Admin: 05/07/19 12:27 Dose: 25 mg Morphine Sulfate (Morphine Sulfate) 2 mg IVPUSH Q4H PRN PRN Reason: PAIN LEVEL 6-10 Morphine Sulfate (Morphine Sulfate) 1 mg IVPUSH Q4H PRN PRN Reason: PAIN LEVEL 4 - 6 Mupirocin (Bactroban Ointment (For Decolonization) -) 1 applic NS BID [facility] Stop: 05/10/19 21:59 Last Admin: 05/07/19 09:14 Dose: 1 applic Non-Formulary Medication (Patient's Own Med) 1 each IH BID [facility] Last Admin: 05/07/19 09:12 Dose: 1 each Non-Formulary Medication (Patient's Own Med) 2 each IH BID [facility] Last Admin: 05/07/19 09:12 Dose: 2 each - Objective Vital Signs: Vital Signs Temperature 98 F 05/07/19 12:00 Pulse Rate 72 05/07/19 12:00 Respiratory Rate 18 05/07/19 12:00 Blood Pressure 151/71 05/07/19 12:00 O2 Sat by Pulse Oximetry (%) 100 05/06/19 20:00 Constitutional: Yes: Well Nourished, No Distress Eyes: Yes: EOM Intact HENT: Yes: WNL Neck: Yes: WNL Cardiovascular: Yes: WNL, Regular Rate and Rhythm Respiratory: Yes: WNL Genitourinary: Yes: WNL Edema: No Neurological: Yes: Alert, Oriented, Cran Nerves II-XII Intact, Dysarthria ( mnimal dysarthria), Paresthesia (R UE) ...Motor Strength: WNL Psychiatric: Yes: Oriented Labs: CBC, BMP 05/07/19 05:08 05/07/19 05:08 INR, PTT INR 1.06 (0.83-1.09) 05/07/19 05:08 Problem List - Problems (1) Cerebrovascular accident (CVA) Code(s): I63.9 - CEREBRAL INFARCTION, UNSPECIFIED Qualifiers: CVA mechanism: unspecified Qualified Code(s): I63.9 - Cerebral infarction, unspecified Assessment/Plan 48 y/o female with PMH of asthma, MS, HTN presented to the hospital for an elective R bunyonectomy. After coming out of the surgery, the patient's mother noticed that she was slurring her words and was displaying delayed speech. S/P tpa 2 days ago ; doing well CTH (0); MILD dysarthria ; no drift in UEs. Carotid doppler (-) c/w baby asp MRI brain when possible. PT/OT/ST ECHO Health maintenance per primary team. Thx IRIS Nayak MD [phone]
[2019-05-07] MEDS ORDERED: PANTOPRAZOLE 40 MG TABLET (FP) PO ONE (13:24)
[2019-05-07] MEDS ORDERED: SODIUM CHLORIDE 1,000 ML IV SCH (15:03)
[2019-05-07] MEDS ORDERED: ALBUTEROL SO4 8 GM HFA INHALER IH PRN (15:03)
--- NOTE | 2019-05-07 15:47 | PN ---
Teaching Attending Note Name of Resident: Lydia Coronado ATTENDING PHYSICIAN STATEMENT I saw and evaluated the patient. I reviewed the resident's note and discussed the case with the resident. I agree with the resident's findings and plan as documented. SUBJECTIVE:states feeling in face has improved. still feels generalized weak. deneis Cp, SOB, fever, chills, N/V/C/D OBJECTIVE: Last Vital Signs Temp Pulse Resp BP Pulse Ox 98 F 72 18 151/71 100 05/07/19 12:00 05/07/19 12:00 05/07/19 12:00 05/07/19 12:05/06/19 20:00 General alert. slow to respond with minimal slurring CV S1 s2 RRR no murmur/rub/gallop Lungs CTA B/L no wheezing/rales/rhonci Extremities R foot in surgical shoe with JOSE E bandage Neuro sensation intact on the face but strength remains diminished in the face and RUE 3/5. ASSESSMENT AND PLAN: 48yo F with PMH HTN, asthma, MS, seizures was sent to the ER after nikole shultz was called in the PACU for dysarthria and change in mental status was found to have NIHSS 11 initially and then 7 in the ER. 1. CVA- possible arrhythmia which potentiated embolus vs hypoperfusion. slow improvement from yesterday. been >24H since TPA given. will obtain tight BP control. start asa/statin. will need echo/mri/carotid dopplers. neuro on board. will need to be evaluated by speech and swallow and PT. 2. Leukocytosis- likely stress induced from surgery. no obvious signs of infection. will hold abx at this time. resolved 3. HTN-restart home medications. titrate to optimize BP 4. Seizure- does not take medications. 5. MS- outpatient neuro follow up. 5. DVT ppx- start hep sq 6. stable for transfer to stroke unit for cardiac monitoring. spoke with father present at bedside. all questions answered. discussed possibility of needing ALFONSO based on PT eval. The care of this patient involved high complexity decision making to prevent further life threatening deterioration of the patient's condition and/or to evaluate & treat vital organ system(s) failure or risk of failure. 38 mins
[2019-05-07 19:58] VITALS: BMI 35.5
[2019-05-07] MEDS ORDERED: ATORVASTATIN CA 80 MG TABLET (FP) PO SCH (22:00)
[2019-05-07] MEDS: PANTOPRAZOLE 40 MG TABLET (FP) PO SCH (22:10)
[2019-05-07] MEDS: ROSUVASTATIN CA 20 MG TABLET (FP) PO SCH (22:10)
[2019-05-07] MEDS: CHLORHEXIDINE GLUCONATE 4% CLEANSER FOR DECOLONIZATION TP SCH (22:11)
--- NOTE | 2019-05-08 00:33 | EKG ---
Test Reason : Blood Pressure : / mmHG Vent. Rate : 069 BPM Atrial Rate : 069 BPM P-R Int : 190 ms QRS Dur : 096 ms QT Int : 456 ms P-R-T Axes : 053 -04 033 degrees QTc Int : 488 ms NORMAL SINUS RHYTHM CANNOT RULE OUT ANTERIOR INFARCT , AGE UNDETERMINED ABNORMAL ECG NO PREVIOUS ECGS AVAILABLE Confirmed by MD Landen, Sahil ([id number]) on 05/08/2019 12:32:43 AM Referred By: Confirmed By:Sahil Schuster MD
[2019-05-08 06:38] LABS: BLOOD UREA NITROGEN 8.1 mg/dL (7-18); CALCIUM 8.5 mg/dL (8.5-10.1); CREATININE 0.7 mg/dL (0.55-1.3); POTASSIUM 3.9 mmol/L (3.5-5.1)
[2019-05-08] MEDS: MORPHINE SULFATE 2 MG/ML VIAL IVPUSH PRN ×3 (08:35→17:11)
[2019-05-08] MEDS: MUPIROCIN 2% TOPICAL OINTMENT FOR DECOLONIZATION NS SCH ×2 (09:50→21:54)
[2019-05-08] MEDS: PANTOPRAZOLE 40 MG TABLET (FP) PO SCH ×2 (09:51→21:52)
[2019-05-08] MEDS: LOSARTAN POTASSIUM 25 MG TABLET PO SCH (09:51)
[2019-05-08] MEDS: ASPIRIN COATED 81 MG TABLET.EC PO SCH (09:51)
--- NOTE | 2019-05-08 10:03 | CONSULT ---
Admitting History and Physical - Primary Care Physician PCP: Elsi Bacon - Admission History of Present Illness: Per EMR-The patient is a 48 y/o female with PMH of asthma, MS, HTN presented to the hospital for an elective R bunyonectomy. After coming out of the surgery, the patient's mother noticed that she was slurring her words and was displaying delayed speech. Ildefonso greco was called in the PACU. Rapid response team assessed the patient and found RUE/RLE weakness as well as decreased sensation on the right side of the face. NIHSS on initial presentation: 11 Patient was taken to the ER for further evaluation. In the ED, the patient was found to have a NIHSS 7. CTA showed no large vessel occlusion, therefore transfer for thrombectomy was not indicated. At 2.5 hrs since last known well, patieht remained with an NIHSS of 7. s/p right foot bunionectomy, with post operative CVA treated by TPA. Selected Entries 05/06/19 05/07/19 05/07/19 20:00 02:00 09:05 Breakfast 50% Lunch Supper 75% Temperature 98.2 F 05/07/19 05/07/19 05/07/19 12:00 13:16 18:00 Breakfast Lunch 50% Supper Temperature 98 F 98.2 F 05/08/19 02:00 Breakfast Lunch Supper Temperature 98.6 F Laboratory Tests 05/05/19 05/07/19 15:55 05:08 WBC 10.9 H 10.0 Pt reports that she has MS, diagnosed in 2001, following by Dr. Maribell Parada. She reports that she has been doing fine, works at [employer]. She thinks she had an MRI a couple of months ago at [facility]. She says that her speech is slow, that she knows what she wants to say but it "takes a while to come out." Seems to be a good historian. Good naming. Slow but accurate repetition. Reports RUE weak. Able to write legibly but slow construction of name, "remember" but accurate. Reports some peripheral visual deficits. History Source: Patient, Medical Record Limitations to Obtaining History: Clinical Condition - Past Medical History PIANO MOVER: Yes: Multiple Sclerosis ...LMP: 04/30/19 - Smoking History Smoking history: Former smoker Have you smoked in the past 12 months: No - Alcohol/Substance Use Hx Alcohol Use: No History - Admission Reason For Visit: CVA - Diagnostics Other: Report Reviewed (CTA) - General Mental Status: Alert and Oriented, Awake and Alert, Able to Follow Commands Attention: Intact Ability to Follow Directions: Good Head/Neck Control: WFL - Hearing Hearing: Normal Speech Evaluation - Communication Primary Language: PASHTO Oral Expression Ability: Yes: Mild Impairment (Slow formulation, dysfluent at times, but accurate. Grammar, naming, repetition accurate.) - Speech Production Able to Make Needs Known: Yes: WNL Intelligibility: Yes: WNL - Speech Characteristics Voice Loudness: Normal Voice Pitch: Yes: Normal Voice Phonatory-based Quality: Yes: Normal Speech Pattern: Impaired Nasal Resonance: Normal Articulation: Yes: Precise Rate of Speech: Too Slow - Language/Auditory Comprehension Observation: Able to respond to yes/no queries: Yes, Yes/No Confusion: No, Comprehends Conversational Speech: Yes - Language/Verbal Expression Able to Respond to Simple Queries: Yes: Mildly Impaired (slow to formulate but accurate) Able to Communicate Wants and Needs: Yes: WNL Functional Communication Status: Yes: WNL - 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 Memory: Yes: WNL Short Term Memory: Yes: WNL - Swallow Evaluation/Bedside Assessment Current Nutritional Intake: Soft, Thin Liquids Oral Secretions: Yes: WFL Dentition: Yes: Adequate Facial Symmetry at Rest: Symmetrical Facial Symmetry on Retraction: Symmetrical Facial Movement: Controlled Against Resistance Opening: Normal Against Resistance Closing: Normal Pucker Lips: Normal Smile: Normal Lingual Movement: Normal, Symmetric Lingual Speed of Movement: Normal Lingual Movement Strgth Against Opposition: Normal Lingual Movement Characteristics: Normal Velopharyngeal Movement: Normal Laryngeal Elevation: WFL Laryngeal Movement: Able to Palpate Rate of Intake: WFL Bolus Size: WFL Labial Seal: WFL Chewing: WFL Oral Prep Time: WFL A-P Transit: WFL Pocketing: None Timing of Swallow: WFL Coughing/Throat Clear: No Change in Voice: No Recommendations - Speech Evaluation, Impression/Plan Impression: h/o MS now with onset of communication deficits and right sided wweakness s/p TPA. Reduced fluency of speech, reporting difficulty "getting the words from her head to her mouth". r/o mild Aphasia. Swallowing intact. - Dysphagia Impressions/Plan Swallowing Skills: [facility] Dysphagia Impressions: No Impairment *Silent aspiration: cannot be R/O at bedside Dysphagia Treatment Plan: Chin Tuck/Down, Clear Pocket Food, Facilitative Feeding, Elevate HOB during feed Recommendations: Neuro Consult (f/u) - Recommendations Diet Consistency: Regular Medication Administration: Whole with water Liquids: Thin Liquids
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
--- NOTE | 2019-05-08 14:56 | PN ---
Teaching Attending Note Name of Resident: Howie Eddy ATTENDING PHYSICIAN STATEMENT I saw and evaluated the patient. I reviewed the resident's note and discussed the case with the resident. I agree with the resident's findings and plan as documented. SUBJECTIVE: Patient seen and examined in the ICU. Awake and alert. Exam in non-focal. No CP or SOB. No dizziness, MILLIGAN, etc. Intake & Output 05/05/19 05/06/19 05/07/19 05/08/19 23:59 23:59 23:59 23:59 Intake Total 1868 1872 Output Total 1050 1200 Balance 818 672 Weight 182 lb 14.4 oz 182 lb 8 oz 182 lb 186 lb 3.2 oz Last Vital Signs Temp Pulse Resp BP Pulse Ox 98.6 F 59 L 18 125/64 100 05/08/19 02:00 05/08/19 09:00 05/08/19 09:00 05/08/19 09:00 05/07/19 21:00 Active Medications Acetaminophen (Tylenol -) 650 mg PO Q6H PRN PRN Reason: PAIN LEVEL 1-5 Albuterol Sulfate (Ventolin Hfa Inhaler -) 1 - 2 puff IH Q4H PRN PRN Reason: ASTHMA Last Admin: 05/08/19 09:49 Dose: 1 puff Aspirin (Ecotrin -) 81 mg PO DAILY [facility] Last Admin: 05/08/19 09:51 Dose: 81 mg Chlorhexidine Gluconate (Hibiclens For Decolonization -) 1 applic TP HS [facility] Last Admin: 05/07/19 22:11 Dose: 1 applic Losartan Potassium (Cozaar -) 25 mg PO DAILY [facility] Last Admin: 05/08/19 09:51 Dose: 25 mg Morphine Sulfate (Morphine Sulfate) 2 mg IVPUSH Q4H PRN PRN Reason: PAIN LEVEL 6-10 Last Admin: 05/08/19 13:00 Dose: 2 mg Morphine Sulfate (Morphine Sulfate) 1 mg IVPUSH Q4H PRN PRN Reason: PAIN LEVEL 4 - 6 Morphine Sulfate (Ms Contin -) 15 mg PO BID [facility] Mupirocin (Bactroban Ointment (For Decolonization) -) 1 applic NS BID [facility] Stop: 05/10/19 21:59 Last Admin: 05/08/19 09:50 Dose: 1 applic Non-Formulary Medication (Patient's Own Med) 1 each IH BID [facility] Last Admin: 05/08/19 09:51 Dose: 1 each Non-Formulary Medication (Patient's Own Med) 2 each IH BID [facility] Last Admin: 05/08/19 09:47 Dose: 2 each Pantoprazole Sodium (Protonix -) 40 mg PO BID [facility] Last Admin: 05/08/19 09:51 Dose: 40 mg Rosuvastatin Calcium (Crestor -) 40 mg PO HS [facility] Last Admin: 05/07/19 22:10 Dose: 40 mg GENERAL: The patient is awake, alert, and fully oriented, in no acute distress. HEAD: Normal with no signs of trauma. EYES: PERRL, extraocular movements intact, sclera anicteric, conjunctiva clear. No ptosis. NECK: Trachea midline, full range of motion, supple. LUNGS: Breath sounds equal, clear to auscultation bilaterally, no wheezes, no crackles, no accessory muscle use. HEART: Regular rate and rhythm, S1, S2 without murmur, rub or gallop. ABDOMEN: Soft, nontender, nondistended, normoactive bowel sounds, no guarding, no rebound, no hepatosplenomegaly, no masses. EXTREMITIES: 2+ pulses, warm, well-perfused, no edema. NEUROLOGICAL: Non-focal PSYCH: Normal mood, normal affect. SKIN: R foot bandaged s/p surgery. Warm, dry, normal turgor. \ Laboratory Results - last 24 hr 05/08/19 05:06 Sodium 140 Potassium 3.9 Chloride 103 Carbon Dioxide 28 Anion Gap 9 BUN 8.1 Creatinine 0.7 Est GFR (CKD-EPI)AfAm 120.43 Est GFR (CKD-EPI)NonAf 103.90 Random Glucose 79 Calcium 8.5 IMP: Acute CVA S/P tPA Leukocytosis S/P buinonectomy HTN Seizure- does not take medications. MS Asthma Follow Neuro exam OOB to chair VTE prophylaxis PO as tolerated BD TX PRN Neuro unit monitoring Dr Sosa
--- NOTE | 2019-05-08 15:27 | ECHO ---
Name: LEO MICHELLE Exam:Adult Echocardiogram Study Date: 05/08/2019 08:33 AM Age: 48 yrs Height: 60 in Weight: 180 lb BSA: 1.8 m2 BP: 128/76 mmHg MMode/2D Measurements & Calculations IVSd: 0.75 cm Ao root diam: 2.7 cm LVIDd: 4.4 cm LA dimension: 3.5 cm LVIDs: 2.8 cm LVPWd: 0.73 cm EDV(Teich): 88.4 ml LVOT diam: 2.2 cm ESV(Teich): 29.1 ml Doppler Measurements & Calculations MV E max rex: 67.1 cm/sec Ao V2 max: 125.6 cm/sec MV A max rex: 70.1 cm/sec Ao max P.3 mmHg MV E/A: 0.96 Ao V2 mean: 93.1 cm/sec MV dec time: 0.38 sec Ao mean P.8 mmHg Ao V2 VTI: 27.5 cm MICHAELA(I,D): 3.0 cm2 MICHAELA(V,D): 3.3 cm2 LV V1 max P.8 mmHg SV(LVOT): 84.0 ml LV V1 mean P.6 mmHg LV V1 max: 110.1 cm/sec LV V1 mean: 78.3 cm/sec LV V1 VTI: 22.3 cm Med Peak E' Rex: 8.2 cm/sec Med E/e': 8.2 Lat Peak E' Rex: 9.1 cm/sec Lat E/e': 7.4 Procedure A complete two-dimensional transthoracic echocardiogram was performed (2D, M-mode, Doppler and color flow Doppler). Technically limited study. Left Ventricle The left ventricle is normal in size. Left ventricular systolic function is normal. Ejection Fraction = 60- 65%. No regional wall motion abnormalities noted. Right Ventricle The right ventricle is normal size. The right ventricular systolic function is normal. RV systolic TD I is 11 cm/s. Atria The left atrial size is normal. Right atrial size is normal. Mitral Valve The mitral valve is normal in structure and function. There is mild mitral regurgitation. Tricuspid Valve The tricuspid valve is normal in structure and function. No tricuspid regurgitation. Aortic Valve The aortic valve is normal in structure and function. No aortic regurgitation is present. Pulmonic Valve The pulmonic valve is not well visualized. Great Vessels The aortic root is normal size. Pericardium/Pleura There is no pericardial effusion. Interpretation Summary Technically limited study The left ventricle is normal in size. Left ventricular systolic function is normal. No regional wall motion abnormalities noted. Ejection Fraction = 60-65%. The right ventricular systolic function is normal. The left atrial size is normal. Right atrial size is normal. There is mild mitral regurgitation. There is no pericardial effusion. Previous study is not available for comparison Manish Nogueira MD 05/08/2019 03:26 PM
--- NOTE | 2019-05-08 18:01 | PN ---
Physical Exam: SUBJECTIVE: Patient seen and examined at bedside. Pt states she has some R foot pain. pt states that she continues to have R sided weakness and R sided sensory deficits. Pt also states that her speech is not yet at her baseline. OBJECTIVE: Vital Signs Period Temp Pulse Resp BP Sys/Mcfarland Pulse Ox Last 24 Hr 98.2 F-98.6 F 55-74 14-27 119-142/52-72 100 GENERAL: The patient is awake, alert, and fully oriented, in no acute distress. EYES: extraocular movements intact LUNGS: Breath sounds equal, + wheezes B/L no accessory muscle use. HEART: Regular rate and rhythm, S1, S2 without murmur, rub or gallop. ABDOMEN: Soft, nontender, nondistended, normoactive bowel sounds, no guarding, no rebound EXTREMITIES: no edema. NEUROLOGICAL: Cranial nerves II through XII grossly intact. Normal speech, gait not observed. PSYCH: Normal mood, normal affect. SKIN: Warm, dry, normal turgor, no rashes or lesions noted Laboratory Results - last 24 hr 05/08/19 05:06 Sodium 140 Potassium 3.9 Chloride 103 Carbon Dioxide 28 Anion Gap 9 BUN 8.1 Creatinine 0.7 Est GFR (CKD-EPI)AfAm 120.43 Est GFR (CKD-EPI)NonAf 103.90 Random Glucose 79 Calcium 8.5 Active Medications Active Medications Acetaminophen (Tylenol -) 650 mg PO Q6H PRN PRN Reason: PAIN LEVEL 1-5 Albuterol Sulfate (Ventolin Hfa Inhaler -) 1 - 2 puff IH Q4H PRN PRN Reason: ASTHMA Last Admin: 05/08/19 09:49 Dose: 1 puff Aspirin (Ecotrin -) 81 mg PO DAILY [facility] Last Admin: 05/08/19 09:51 Dose: 81 mg Chlorhexidine Gluconate (Hibiclens For Decolonization -) 1 applic TP HS [facility] Last Admin: 05/07/19 22:11 Dose: 1 applic Losartan Potassium (Cozaar -) 25 mg PO DAILY [facility] Last Admin: 05/08/19 09:51 Dose: 25 mg Morphine Sulfate (Morphine Sulfate) 2 mg IVPUSH Q4H PRN PRN Reason: PAIN LEVEL 6-10 Last Admin: 05/08/19 17:11 Dose: 2 mg Morphine Sulfate (Morphine Sulfate) 1 mg IVPUSH Q4H PRN PRN Reason: PAIN LEVEL 4 - 6 Morphine Sulfate (Ms Contin -) 15 mg PO BID [facility] Mupirocin (Bactroban Ointment (For Decolonization) -) 1 applic NS BID [facility] Stop: 05/10/19 21:59 Last Admin: 05/08/19 09:50 Dose: 1 applic Non-Formulary Medication (Patient's Own Med) 1 each IH BID [facility] Last Admin: 05/08/19 09:51 Dose: 1 each Non-Formulary Medication (Patient's Own Med) 2 each IH BID [facility] Last Admin: 05/08/19 09:47 Dose: 2 each Pantoprazole Sodium (Protonix -) 40 mg PO BID [facility] Last Admin: 05/08/19 09:51 Dose: 40 mg Rosuvastatin Calcium (Crestor -) 40 mg PO HS [facility] Last Admin: 05/07/19 22:10 Dose: 40 mg ASSESSMENT/PLAN: 48 yo F w/ PMH Asthma, HTN, MS. Initially presented for elective bunyonectomy on 05/05/19. in the pacu a code shultz was called following dysarthria and change in mental status. pt had NIHSS 7 in ED. tPA was administered on 05/05/19 1. CVA - arrhythmia / cardioembolic thrombus vs hypoperfusion -awaiting ECHO -pt states that symptoms are improving -awaiting brain MRI -awaiting PT evaluation -c/w Asa and statin -neuro is following 2. s/p bunyonectomy -NWB to R foot -PO pain management with Tylenol -awaiting PT evaluation 3. HTN -continue home meds 4. DVT ppx -Heparin SQ Visit type - Emergency Visit Emergency Visit: No - New Patient This patient is new to me today: No - Critical Care Critical Care patient: No
[2019-05-08] MEDS: ACETAMINOPHEN 325 MG TABLET (FP) PO PRN (21:10)
[2019-05-08] MEDS: ROSUVASTATIN CA 20 MG TABLET (FP) PO SCH (21:51)
[2019-05-08] MEDS: morphine SO4 SUSTAINED ACTING 15 MG TABLET.SA PO SCH (21:52)
[2019-05-08] MEDS: CHLORHEXIDINE GLUCONATE 4% CLEANSER FOR DECOLONIZATION TP SCH (21:54)
[2019-05-09] MEDS: ACETAMINOPHEN 325 MG TABLET (FP) PO PRN ×2 (03:04→15:18)
--- NOTE | 2019-05-09 08:09 | PN ---
Physical Exam: SUBJECTIVE: Patient seen and examined at bedside. pt says she is improving. she states her R sided weakness is improving since she is exercising her hand. she had PT yesterday and agrees with opinion of acute rehab on d/c. pt states that yesterday when she sat up to go to wheelchair she felt very dizzy. she states that this is a new finding. OBJECTIVE: Vital Signs Period Temp Pulse Resp BP Sys/Mcfarland Pulse Ox Last 24 Hr 98.1 F-98.6 F 59-77 16-19 115-136/47-80 99 GENERAL: The patient is awake, alert, and fully oriented, in no acute distress. HEAD: Normal with no signs of trauma. EYES: extraocular movements intact LUNGS: Breath sounds equal, clear to auscultation bilaterally, no wheezes, no crackles, no accessory muscle use. HEART: Regular rate and rhythm, S1, S2 without murmur, rub or gallop. ABDOMEN: Soft, nontender, nondistended, normoactive bowel sounds, no guarding, no rebound EXTREMITIES: 2+ pulses, warm, well-perfused, no edema. NEUROLOGICAL: Cranial nerves II through XII grossly intact. Normal speech, gait not observed. residual weakness on right side. PSYCH: Normal mood, normal affect. SKIN: Warm, dry, normal turgor, no rashes or lesions noted Active Medications Acetaminophen (Tylenol -) 650 mg PO Q6H PRN PRN Reason: PAIN LEVEL 1-5 Last Admin: 05/09/19 03:04 Dose: 650 mg Albuterol Sulfate (Ventolin Hfa Inhaler -) 1 - 2 puff IH Q4H PRN PRN Reason: ASTHMA Last Admin: 05/08/19 09:49 Dose: 1 puff Aspirin (Ecotrin -) 81 mg PO DAILY [facility] Last Admin: 05/08/19 09:51 Dose: 81 mg Chlorhexidine Gluconate (Hibiclens For Decolonization -) 1 applic TP HS [facility] Last Admin: 05/08/19 21:54 Dose: 1 applic Losartan Potassium (Cozaar -) 25 mg PO DAILY [facility] Last Admin: 05/08/19 09:51 Dose: 25 mg Morphine Sulfate (Morphine Sulfate) 2 mg IVPUSH Q4H PRN PRN Reason: PAIN LEVEL 6-10 Last Admin: 05/08/19 17:11 Dose: 2 mg Morphine Sulfate (Morphine Sulfate) 1 mg IVPUSH Q4H PRN PRN Reason: PAIN LEVEL 4 - 6 Morphine Sulfate (Ms Contin -) 15 mg PO BID [facility] Last Admin: 05/08/19 21:52 Dose: 15 mg Mupirocin (Bactroban Ointment (For Decolonization) -) 1 applic NS BID [facility] Stop: 05/10/19 21:59 Last Admin: 05/08/19 21:54 Dose: 1 applic Non-Formulary Medication (Patient's Own Med) 1 each IH BID [facility] Last Admin: 05/08/19 21:55 Dose: 1 each Non-Formulary Medication (Patient's Own Med) 2 each IH BID [facility] Last Admin: 05/08/19 21:55 Dose: 2 each Pantoprazole Sodium (Protonix -) 40 mg PO BID [facility] Last Admin: 05/08/19 21:52 Dose: 40 mg Rosuvastatin Calcium (Crestor -) 40 mg PO HS [facility] Last Admin: 05/08/19 21:51 Dose: 40 mg ASSESSMENT/PLAN: 48 yo F w/ PMH Asthma, HTN, MS. Initially presented for elective bunyonectomy on 05/05/19. in the pacu a code shultz was called following dysarthria and change in mental status. pt had NIHSS 7 in ED. tPA was administered on 05/05/19 1. CVA - arrhythmia / cardioembolic thrombus vs hypoperfusion - ECHO reviewed: no LV dysfunction, EF 60-65% -pt states that symptoms are improving -awaiting brain MRI -awaiting PT evaluation -c/w Asa and statin -neuro is following 2. s/p bunyonectomy -NWB to R foot -PO pain management with Tylenol -awaiting PT evaluation 3. HTN -continue home meds 4. Asthma -wheezes improved -continue home medications 5. DVT ppx -Heparin SQ
[2019-05-09 08:43] LABS: CALCIUM 8.8 mg/dL (8.5-10.1); CREATININE 0.6 mg/dL (0.55-1.3); POTASSIUM 3.9 mmol/L (3.5-5.1)
[2019-05-09] MEDS: ASPIRIN COATED 81 MG TABLET.EC PO SCH (09:43)
[2019-05-09] MEDS: morphine SO4 SUSTAINED ACTING 15 MG TABLET.SA PO SCH ×2 (09:43→21:50)
[2019-05-09] MEDS: LOSARTAN POTASSIUM 25 MG TABLET PO SCH (09:44)
[2019-05-09] MEDS: PANTOPRAZOLE 40 MG TABLET (FP) PO SCH ×2 (09:44→21:49)
--- NOTE | 2019-05-09 11:16 | PN ---
Progress Note, [employer] - Note Progress Note: Selected Entries 05/08/19 05/08/19 05/08/19 02:00 10:00 14:00 Breakfast 50% Diet Tolerated Supper Temperature 98.6 F 98.4 F 05/08/19 05/08/19 05/08/19 18:00 22:00 23:00 Breakfast Diet Tolerated Well Supper 75% Temperature 98.4 F 98.2 F 05/09/19 05/09/19 05/09/19 01:50 06:00 08:44 Breakfast Diet Tolerated Supper Temperature 98.6 F 98.1 F 97.9 F Laboratory Tests 05/05/19 05/07/19 15:55 05:08 WBC 10.9 H 10.0 Pt now on telemetry. Pt swallowing well, however, she reports symptoms of reflux, adversely affecting her desire to eat. She would like to take her GERD medication before meals. Nursing aware.
[2019-05-09] MEDS: MUPIROCIN 2% TOPICAL OINTMENT FOR DECOLONIZATION NS SCH (12:26)
--- NOTE | 2019-05-09 12:36 | PN ---
Teaching Attending Note Name of Resident: Sarah Esteban ATTENDING PHYSICIAN STATEMENT I saw and evaluated the patient. I reviewed the resident's note and discussed the case with the resident. I agree with the resident's findings and plan as documented. SUBJECTIVE: No new complaints. Ongoing R sided weakness. No new deficits. No vision/speech disturbance. OBJECTIVE: Afebrile, Hemodynamically Stable. Last Vital Signs Temp Pulse Resp BP Pulse Ox 97.9 F 61 16 118/66 99 05/09/19 08:44 05/09/19 10:00 05/09/19 09:00 05/09/19 08:44 05/09/19 09:00 HEENT - partial R side facial weakness/flattening of R nasolabial fold. Atraumatic. Heart - S1, S2, RRR Lungs - clear to auscultation Abdomen - Soft, non-tender. Bowel Sounds normal. Extremities - no edema, no calf tenderness Neuro - AAO x 3. Reduced Power RUE/RLE 4/5. Laboratory Results - last 24 hr 05/09/19 06:16 Sodium 139 Potassium 3.9 Chloride 103 Carbon Dioxide 29 Anion Gap 7 L BUN 12.0 Creatinine 0.6 Est GFR (CKD-EPI)AfAm 126.69 Est GFR (CKD-EPI)NonAf 109.31 Random Glucose 76 Calcium 8.8 Current Medications Generic Name Dose Route Start Last Admin Trade Name Freq PRN Reason Stop Dose Admin Acetaminophen 650 mg 05/07/19 15:03 05/09/19 03:04 Tylenol - PO 650 mg Q6H PRN Administration PAIN LEVEL 1-5 Al Hydroxide/Mg Hydroxide 30 ml 05/09/19 14:00 Mylanta Oral Suspension - PO TID [facility] Albuterol Sulfate 1 - 2 puff 05/07/19 15:03 05/08/19 09:49 Ventolin Hfa Inhaler - IH 1 puff Q4H PRN Administration ASTHMA Aspirin 81 mg 05/08/19 10:00 05/09/19 09:43 Ecotrin - PO 81 mg DAILY [facility] Administration Chlorhexidine Gluconate 1 applic 05/07/19 22:00 05/08/19 21:54 Hibiclens For Decolonization - TP 1 applic HS [facility] Administration Heparin Sodium (Porcine) 5,000 unit 05/09/19 14:00 Heparin - SQ TID [facility] Losartan Potassium 25 mg 05/07/19 10:13 05/09/19 09:44 Cozaar - PO 25 mg DAILY [facility] Administration Morphine Sulfate 2 mg 05/07/19 15:03 05/08/19 17:11 Morphine Sulfate IVPUSH 2 mg Q4H PRN Administration PAIN LEVEL 6-10 Morphine Sulfate 1 mg 05/07/19 15:03 Morphine Sulfate IVPUSH Q4H PRN PAIN LEVEL 4 - 6 Morphine Sulfate 15 mg 05/08/19 22:00 05/09/19 09:43 Ms Contin - PO 15 mg BID [facility] Administration Mupirocin 1 applic 05/07/19 22:00 05/08/19 21:54 Bactroban Ointment (For Decolonization) - NS 05/10/19 21:59 1 applic BID [facility] Administration Non-Formulary Medication 1 each 05/07/19 22:00 05/09/19 09:45 Patient's Own Med IH 1 each BID [facility] Administration Non-Formulary Medication 2 each 05/07/19 22:00 05/09/19 09:45 Patient's Own Med IH 2 each BID [facility] Administration Pantoprazole Sodium 40 mg 05/07/19 22:00 05/09/19 09:44 Protonix - PO 40 mg BID [facility] Administration Rosuvastatin Calcium 40 mg 05/07/19 22:00 05/08/19 21:51 Crestor - PO 40 mg HS [facility] Administration ASSESSMENT AND PLAN: 48 year old female with history of HTN, Asthma, MS, GERD, Seizure Disorder, developed Dysarthria and R sided weakness in PACU after GA for elective Bunionectomy, s/p TPA for NIHSS of 11. 1. Acute CVA s/p TPA - residual R sided weakness. Echo- normal. CTA Head - no acute intracranial findings. Carotid US - no hemodynamically significant stenosis. LDL 113 Started on Aspirin/Statin - repeat LFTs/Lipid panel in 4 weeks. Neuro evaluated. PT eval - requires Rehab 2. Leukocytosis - reactive sec to surgery - resolved. No signs of infection. Afebrile, Hemodynamically Stable. 3. POD 4 s/p Bunionectomy - wound dressed. NWB to R foot. For Rehab placement. 4. HTN - controlled on Cozaar. 5. Seizure Disorder - not on medications. Follows with out-patient Neurologist. 6. MS - receives Copaxone injections 3x/week. Follows with own Neurologist. 7. GERD - continue PPI DVT Px - Heparin SQ Dispo - Subacute Rehab
[2019-05-09] MEDS: MAG HYDROX/AL HYDROX/SIMETH 30 ML UNIT-DOSE CUP PO SCH ×2 (13:10→21:49)
[2019-05-09] MEDS: HEPARIN NA (PORCINE) 5,000 UNITS/ML 1ML VIAL SQ SCH ×2 (15:19→21:49)
--- NOTE | 2019-05-09 16:17 | DS ---
Physical Exam: SUBJECTIVE: Patient seen and examined at bedside. Pt still demonstrates R sided weakness along with R facial droop. today the NIHSS was 4. OBJECTIVE: Vital Signs Period Temp Pulse Resp BP Sys/Mcfarland Pulse Ox Last 24 Hr 97.9 F-98.7 F 60-77 16-19 115-136/47-80 99-99 PHYSICAL EXAM GENERAL: The patient is awake, alert, and fully oriented, in no acute distress. HEAD: Normal with no signs of trauma EYES: extraocular movements intact LUNGS: Breath sounds equal, clear to auscultation bilaterally, no wheezes, no crackles, no accessory muscle use. HEART: Regular rate and rhythm, S1, S2 without murmur, rub or gallop. ABDOMEN: Soft, nontender, nondistended, normoactive bowel sounds, no guarding, no rebound, no hepatosplenomegaly, no masses. EXTREMITIES: 2+ pulses, warm, well-perfused, no edema, R foot wrapped NEUROLOGICAL: Cranial nerves II through XII grossly intact. Normal speech, gait not observed, mild facial droop, NIHSS 4 PSYCH: Normal mood, normal affect. SKIN: Warm, dry, normal turgor, no rashes or lesions noted. LABS Laboratory Results - last 24 hr 05/09/19 06:16 Sodium 139 Potassium 3.9 Chloride 103 Carbon Dioxide 29 Anion Gap 7 L BUN 12.0 Creatinine 0.6 Est GFR (CKD-EPI)AfAm 126.69 Est GFR (CKD-EPI)NonAf 109.31 Random Glucose [address] BRAIN [address]A No CT evidence of large vessel stenosis or occlusion. No discrete intraluminal defect is seen. Carotid U/S No evidence of hemodynamically significant stenosis BRAIN MRI: No acute infarct is seen. At least moderately extensive confluent periventricular and subcortical white matter signal alteration is noted. Note is also made of smaller signal foci within the corpus callosum. These findings are suggestive although not specific of demyelinating disease. Correlate clinically HOSPITAL COURSE: Date of Admission:05/05/19 8 yo F w/ PMH Asthma, HTN, MS. Initially presented for elective bunyonectomy on 05/05/19. in the PACU a code shultz was called following dysarthria and change in mental status. pt had NIHSS 7 in ED. tPA was administered on 05/05/19. 1. CVA s/p tPA -residual R sided weakness - ECHO reviewed: no LV dysfunction, EF 60-65% -pt states that symptoms are improving -c/w Asa and statin -pt should follow up with neurologist outpt 2. Leukocytosis -reactive to surgery -resolved -pt is afebrile with no signs of acute infection. 3. s/p bunyonectomy -pt should remain NWB to R foot -PO pain management with Tylenol -PT was evaluated pt and recommended for rehab -pt d/c to rehab 3. HTN -continue home medication, Cozaar 4. Asthma -wheezes improved -continue home medications 5. MS -continue Copaxone 3x/week as prescribed by Neurologist, Dr. Parada 6. GERD -continue home medication *Unable to verify MS medication (Copaxone) and dose by pharmacy and neurologist. Date of Discharge: 05/09/19 Minutes to complete discharge: 36 Discharge Summary Reason For Visit: CVA Current Active Problems Cerebrovascular accident (CVA) (Acute) - Instructions Diet, Activity, Other Instructions: You presented to the hospital with a stroke. Your imaging revealed that your arteries in your neck do not have blood clots. Your ECHO which tests your heart function also revealed normal heart function. You also had an ultrasound testing your arteries in your neck, it showed that there was no blockage in these arteries. For the stroke, you were treated with a medication that breaks the blood clot (tPA). To help prevent future clots, you were started on aspirin and a medication for your cholesterol. Medication Changes: 1. Continue taking Baby Aspirin ( 81mg) everyday 2. Continue taking your cholesterol medication ( Crestor 40mg) daily Follow up with the following physicians: 1. Follow up with your neurologist, Dr. Parada, to continue monitoring you from the stroke and to continue your management of MS 2.Follow up with your PCP, Dr. Cruz, in one week, please call to schedule follow up to further manage your high cholesterol and hypertension. Your physician should re-check your cholesterol and also your liver since you are starting a new medication for your cholesterol. 3. Follow up with your shampoo assistant regarding your foot following the bunion removal Labwork: 1. While you were in the hospital you had some blood tests. Your blood test shows that you have high cholesterol. Activity/Diet: 1. Continue to follow a low cholesterol/ low salt diet. You are being discharged to a rehab facility to strengthen your muscles. Continue all your other medications as prescribed. You may continue your MS medication, copaxone, as prescribed by your neurologist Dr. Parada. This may be continued 3x weekly. Please return to the ER if you have any signs or symptoms of chest pain, shortness of breath, uncontrollable fever, chills, nausea, vomiting, numbness, tingling, or weakness in any part of your body, changes in vision, or slurred speech. Please return to the ER if symptoms persist, worsen, or new symptoms arise. *We were unable to verify medication Copaxone dose Disposition: [facility]ILITY - Home Medications Comprehensive Discharge Medication List: Ambulatory Orders Albuterol Sulfate Inhaler - [Ventolin HFA Inhaler -] 1 - 2 inh PO Q4H PRN Azelastine HCl 137 mcg NS PRN PRN 05/05/19 Fluticasone Propionate [Flovent Diskus] 100 mcg IH PRN PRN 05/05/19 Gabapentin [Neurontin -] 300 mg PO Q8H 05/05/19 Levocetirizine Dihydrochloride [Xyzal] 5 mg PO DAILY 05/05/19 Losartan Potassium 25 mg PO DAILY 05/05/19 Montelukast Sodium [Singulair] 10 mg PO DAILY 05/05/19 Pantoprazole Sodium 40 mg PO BID 05/05/19 Acetaminophen [Tylenol .Regular Strength -] 650 mg PO Q6H PRN tablet 05/09/19 Aspirin Coated [Ecotrin -] 81 mg PO DAILY tablet.ec 05/09/19 Chlorhexidine Gluconate [Hibiclens For Decolonization -] 1 applic TP HS bottle 05/09/19 Chlorthalidone 25 mg PO DAILY 05/09/19 Mag Hydrox/Al Hydrox/Simeth [Mylanta Oral Suspension -] 30 ml PO TID cup Mupirocin Ointment [Bactroban Ointment (For Decolonization) -] 1 applic NS BID applic 05/09/19 Rosuvastatin [Crestor -] 40 mg PO HS tablet 05/09/19 This patient is new to me today: No Emergency Visit: No Critical Care patient: No - Discharge Referral [facility]erred to [facility] No
[2019-05-09] MEDS ORDERED: MORPHINE SULFATE 2 MG/ML VIAL IVPUSH PRN ×2 (17:05)
[2019-05-09] MEDS ORDERED: ACETAMINOPHEN 325 MG TABLET (FP) PO PRN (17:05)
[2019-05-09] MEDS ORDERED: ALBUTEROL SO4 8 GM HFA INHALER IH PRN (17:05)
[2019-05-09] MEDS ORDERED: PT OWN MED DRAWER 7, Y5N ONE (19:21)
[2019-05-09] MEDS ORDERED: ROSUVASTATIN CA 20 MG TABLET (FP) PO SCH (22:00)
[2019-05-10] MEDS: MAG HYDROX/AL HYDROX/SIMETH 30 ML UNIT-DOSE CUP PO SCH (06:06)
[2019-05-10] MEDS: HEPARIN NA (PORCINE) 5,000 UNITS/ML 1ML VIAL SQ SCH (06:06)
[2019-05-10] MEDS: PANTOPRAZOLE 40 MG TABLET (FP) PO SCH (08:24)
[2019-05-10 09:00] VITALS: BP 117/68; PULSE 70; TEMP 98
[2019-05-10] MEDS: morphine SO4 SUSTAINED ACTING 15 MG TABLET.SA PO SCH (09:23)
[2019-05-10] MEDS ORDERED: LOSARTAN POTASSIUM 25 MG TABLET PO SCH (10:00)
[2019-05-10] MEDS ORDERED: ASPIRIN COATED 81 MG TABLET.EC PO SCH (10:00)
--- NOTE | 2019-05-10 13:34 | PN ---
Teaching Attending Note Name of Resident: Sarah Esteban ATTENDING PHYSICIAN STATEMENT I saw and evaluated the patient. I reviewed the resident's note and discussed the case with the resident. I agree with the resident's findings and plan as documented. Patient was medically and neurologically cleared for discharge yesterday but no bed was available at SNF. She has remained afebrile, Hemodynamically Stable, and Neurologically Stable overnight as per Nursing and Residents. By the time of morning rounds, patient had already left for SNF without my interview or examination. Vitals, Labs and Discharge meds are as documented below. Last Vital Signs Temp Pulse Resp BP Pulse Ox 98 F 70 18 117/68 98 05/10/19 08:59 05/10/19 08:59 05/10/19 08:59 05/10/19 08:59 05/10/19 09:00 Laboratory Tests 05/05/19 05/05/19 05/05/19 05:08 15:55 15:55 WBC 10.9 H RBC 4.05 Hgb 12.5 Hct 37.7 MCV 93.1 MCH 30.9 MCHC 33.2 RDW 13.2 Plt Count 354 MPV 7.6 Absolute Neuts (auto) 10.3 H Neutrophils % 94.1 H Neutrophils % (Manual) 93.0 H* Band Neutrophils % 0.0 Lymphocytes % 3.8 L Lymphocytes % (Manual) 7.0 L Monocytes % 1.7 L Monocytes % (Manual) 0 L Eosinophils % 0.1 Eosinophils % (Manual) 0.0 Basophils % 0.3 Basophils % (Manual) 0.0 Nucleated RBC % 0 Platelet Estimate Adequate PT with INR 11.60 INR 0.98 Sodium Potassium Chloride Carbon Dioxide Anion Gap BUN Creatinine Est GFR (CKD-EPI)AfAm Est GFR (CKD-EPI)NonAf Random Glucose Calcium Phosphorus Magnesium Total Bilirubin AST ALT Alkaline Phosphatase Creatine Kinase Creatine Kinase Index CK-MB (CK-2) Troponin I Total Protein Albumin Triglycerides Cholesterol Total LDL Cholesterol HDL Cholesterol Urine Color Urine Appearance Urine pH Ur Specific [place] Urine Protein Urine Glucose (UA) Urine Ketones Urine Blood Urine Nitrite Urine Bilirubin Urine Urobilinogen Ur Leukocyte Esterase Blood Type A POSITIVE Antibody Screen 05/05/19 05/05/19 05/05/19 15:55 15:55 17:10 WBC RBC Hgb Hct MCV MCH MCHC RDW Plt Count MPV Absolute Neuts (auto) Neutrophils % Neutrophils % (Manual) Band Neutrophils % Lymphocytes % Lymphocytes % (Manual) Monocytes % Monocytes % (Manual) Eosinophils % Eosinophils % (Manual) Basophils % Basophils % (Manual) Nucleated RBC % Platelet Estimate PT with INR INR Sodium 139 Potassium 3.5 Chloride 103 Carbon Dioxide 27 Anion Gap 9 BUN 12.9 Creatinine 0.8 Est GFR (CKD-EPI)AfAm 102.47 Est GFR (CKD-EPI)NonAf 88.41 Random Glucose 109 H Calcium 9.1 Phosphorus Magnesium Total Bilirubin 0.3 AST 18 ALT 17 Alkaline Phosphatase 54 Creatine Kinase 197 H Creatine Kinase Index 0.8 CK-MB (CK-2) 1.6 Troponin I < 0.02 Total Protein 6.5 Albumin 3.5 Triglycerides 38 Cholesterol 199 Total LDL Cholesterol 107 H HDL Cholesterol 79 H Urine Color Yellow Urine Appearance Clear Urine pH 6.5 Ur Specific [place] 1.018 Urine Protein Negative Urine Glucose (UA) Negative Urine Ketones Negative Urine Blood Negative Urine Nitrite Negative Urine Bilirubin Negative Urine Urobilinogen 0.2 Ur Leukocyte Esterase Negative Blood Type A POSITIVE Antibody Screen Negative 05/07/19 05/07/19 05/07/19 05:08 05:08 05:08 WBC 10.0 RBC 4.03 Hgb 12.5 Hct 37.4 MCV 92.8 MCH 31.0 MCHC 33.4 RDW 13.1 Plt Count 383 MPV 8.0 Absolute Neuts (auto) 7.5 Neutrophils % 74.6 D Neutrophils % (Manual) Band Neutrophils % Lymphocytes % 14.3 D Lymphocytes % (Manual) Monocytes % 8.9 D Monocytes % (Manual) Eosinophils % 1.7 D Eosinophils % (Manual) Basophils % 0.5 Basophils % (Manual) Nucleated RBC % 0 Platelet Estimate PT with INR 12.50 INR 1.06 Sodium 139 Potassium 3.4 L Chloride 101 Carbon Dioxide 30 Anion Gap 8 BUN 6.2 L Creatinine 0.6 Est GFR (CKD-EPI)AfAm 126.69 Est GFR (CKD-EPI)NonAf 109.31 Random Glucose 80 Calcium 8.8 Phosphorus 3.9 Magnesium 2.0 Total Bilirubin AST ALT Alkaline Phosphatase Creatine Kinase Creatine Kinase Index CK-MB (CK-2) Troponin I Total Protein Albumin Triglycerides Cholesterol Total LDL Cholesterol HDL Cholesterol Urine Color Urine Appearance Urine pH Ur Specific [place] Urine Protein Urine Glucose (UA) Urine Ketones Urine Blood Urine Nitrite Urine Bilirubin Urine Urobilinogen Ur Leukocyte Esterase Blood Type Antibody Screen 05/07/19 05/08/19 05/09/19 06:00 05:06 06:16 WBC RBC Hgb Hct MCV MCH MCHC RDW Plt Count MPV Absolute Neuts (auto) Neutrophils % Neutrophils % (Manual) Band Neutrophils % Lymphocytes % Lymphocytes % (Manual) Monocytes % Monocytes % (Manual) Eosinophils % Eosinophils % (Manual) Basophils % Basophils % (Manual) Nucleated RBC % Platelet Estimate PT with INR INR Sodium 140 139 Potassium 3.9 3.9 Chloride 103 103 Carbon Dioxide 28 29 Anion Gap 9 7 L BUN 8.1 12.0 Creatinine 0.7 0.6 Est GFR (CKD-EPI)AfAm 120.43 126.69 Est GFR (CKD-EPI)NonAf 103.90 109.31 Random Glucose 79 76 Calcium 8.5 8.8 Phosphorus Magnesium Total Bilirubin AST ALT Alkaline Phosphatase Creatine Kinase Creatine Kinase Index CK-MB (CK-2) Troponin I Total Protein Albumin Triglycerides 59 Cholesterol 202 H Total LDL Cholesterol 113 H HDL Cholesterol 70 H Urine Color Urine Appearance Urine pH Ur Specific [place] Urine Protein Urine Glucose (UA) Urine Ketones Urine Blood Urine Nitrite Urine Bilirubin Urine Urobilinogen Ur Leukocyte Esterase Blood Type Antibody Screen Discharge Medications Medication Instructions Recorded Albuterol Sulfate Inhaler - 1 - 2 inh PO Q4H PRN 05/05/19 [Ventolin HFA Inhaler -] Azelastine HCl 137 mcg NS PRN PRN 05/05/19 Fluticasone Propionate [Flovent 100 mcg IH PRN PRN 05/05/19 Diskus] Gabapentin [Neurontin -] 300 mg PO Q8H 05/05/19 Levocetirizine Dihydrochloride 5 mg PO DAILY 05/05/19 [Xyzal] Losartan Potassium 25 mg PO DAILY 05/05/19 Montelukast Sodium [Singulair] 10 mg PO DAILY 05/05/19 Pantoprazole Sodium 40 mg PO BID 05/05/19 Acetaminophen [Tylenol .Regular 650 mg PO Q6H PRN tablet 05/09/19 Strength -] Aspirin Coated [Ecotrin -] 81 mg PO DAILY tablet.ec 05/09/19 Chlorhexidine Gluconate [Hibiclens 1 applic TP HS bottle 05/09/19 For Decolonization -] Chlorthalidone 25 mg PO DAILY 05/09/19 Mag Hydrox/Al Hydrox/Simeth 30 ml PO TID cup 05/09/19 [Mylanta Oral Suspension -] Mupirocin Ointment [Bactroban 1 applic NS BID applic 05/09/19 Ointment (For Decolonization) -] Rosuvastatin [Crestor -] 40 mg PO HS tablet 05/09/19
== END 2019-05-10 11:07 | DRG 92 ==
LOC: JER 15:32 → JERBED 17:13 → JICU 18:27 → J4W 05-08 22:53
PROVIDERS: ADMIT Internal Medicine
DX: I97.821 Postprocedural cerebrovascular infarction following other surgery (principal); G81.91 Hemiplegia, unspecified affecting right dominant side; R47.01 Aphasia; I69.322 Dysarthria following cerebral infarction; I10 Essential (primary) hypertension; J45.909 Unspecified asthma, uncomplicated; Z96.651 Presence of right artificial knee joint; Z96.642 Presence of left artificial hip joint; R29.707 NIHSS score 7; R29.810 Facial weakness; Y83.8 Other surgical procedures as the cause of abnormal reaction of the patient, or of later complication, without mention of misadventure at the time of the procedure; D72.829 Elevated white blood cell count, unspecified; G35 Multiple sclerosis; R56.9 Unspecified convulsions; Z87.891 Personal history of nicotine dependence; Z98.890 Other specified postprocedural states; K21.9 Gastro-esophageal reflux disease without esophagitis
CPT/HCPCS: 36415; 70450-TC; 70496-TC; 70551-TC; 76000-TC-FY; 80048; 80053; 80061; 81003; 82465; 82550; 82553; 82962; 83718; 83721; 83735; 84100; 84478; 84484; 84703; 85025; 85610; 86850; 86900; 86901; 93005; 93010; 93306-TC; 93880-TC; 94640; 94760; 97116-GP; 97162-GP; 99283-25; J0131; J1644; J2997; J7030

== ENCOUNTER → 2019-05-05 | Day surgery (SDC) | payer OTHER | LOC: JASU-SURG 08:27 ==